=== PATIENT | female | born 1990 | race Caucasian/White ===

== ENCOUNTER 2021-03-13 11:47 | Inpatient (IN) ==
[2021-03-13 11:52] VITALS: BMI 38.7
[2021-03-13 12:35] LABS: BILIRUBIN,URINE NEGATIVE (NEGATIVE); BLOOD/HEMOGLOBIN,URINE 5+ (NEGATIVE); GLUCOSE, URINE NEGATIVE (NEGATIVE); KETONES,URINE 1+ (NEGATIVE); LEUKOCYTE ESTERASE ,URINE 1+ (NEGATIVE); NITRITES,URINE NEGATIVE (NEGATIVE); PH,URINE 6.5 (5.0 - 8.0); PROTEIN,URINE 3+ (NEGATIVE); UROBILINOGEN,URINE 1+ (NORMAL)
[2021-03-13 12:46] LABS: APPEARANCE,URINE HAZY (CLEAR); COLOR,URINE YELLOW (YELLOW)
[2021-03-13 12:47] LABS: BACTERIA,URINE TRACE /HPF (NEGATIVE); MUCUS,URINE FEW /HPF (NEGATIVE); RBC,URINE TNTC /HPF (0-3); SQUAMOUS EPITHELIAL CELL,UR NUMEROUS /HPF (NEGATIVE)
[2021-03-13 13:10] LABS: BASOPHILS % (AUTO) 0.4 % (0.2-1.0); EOSINOPHILS # (AUTO) 0.1 x10^3/uL (0.0-0.2); EOSINOPHILS % (AUTO) 0.8 % (0.9-2.9); HEMATOCRIT 36.8 % (36.0-47.0); HEMOGLOBIN 12.3 g/dL (12.0-16.0); LYMPHOCYTES # (AUTO) 1.8 X10^3/uL (1.3-2.9); LYMPHOCYTES % (AUTO) 15.5 % (21.0-51.0); MEAN CORPUSCULAR HEMOGLOBIN 28.2 pg (27.0-34.0); MEAN CORPUSCULAR HGB CONC 33.5 g/dL (33.0-35.0); MEAN CORPUSCULAR VOLUME 84.1 fL (80.0-100.0); MEAN PLATELET VOLUME 8.1 fL (7.4-11.0); MONOCYTES # (AUTO) 0.7 x10^3/uL (0.3-0.8); NEUTROPHILS % (AUTO) 77.3 % (42.0-75.0); PLATELET COUNT 321 X10^3/uL (150.0-450.0); RED BLOOD COUNT 4.38 X10^6/uL (3.5-5.4); RED CELL DISTRIBUTION WIDTH 15.9 % (11.6-16.5); WHITE BLOOD COUNT 11.7 X10^3/uL (3.6-10.0)
[2021-03-13 13:21] LABS: BLOOD UREA NITROGEN 7 mg/dL (7-18); CALCIUM 8.6 mg/dL (8.5-10.1); CARBON DIOXIDE 23.2 mmol/L (21-32); CHLORIDE 104 mmol/L (98-107); CREATININE 0.69 mg/dL (0.55-1.02); SODIUM 138 mmol/L (136-145); eGFR NON BLACK RACES > 60 (>60)
[2021-03-13] MEDS ORDERED: PITOCIN ONE ×2 (13:22→21:21)
[2021-03-13] MEDS ORDERED: D5 1/2 NS 1,000 ML 1,000 ML IV ONE (13:22)
[2021-03-13] MEDS ORDERED: BETADINE SOLN ONE (13:22)
[2021-03-13] MEDS ORDERED: D5 1/2 NS 1,000 mL + PITOCIN 20 UNITS/L IV 20 UNITS/1,000 ML BAG IV ONE (13:23)
[2021-03-13] MEDS ORDERED: DEXTROSE IV ONE (13:23)
[2021-03-13] MEDS ORDERED: OXYTOCIN IV ONE (13:23)
[2021-03-13] MEDS ORDERED: LACTATED RINGERS IV ONE (13:23)
[2021-03-13] MEDS ORDERED: AMPICILLIN VIAL 2 GRAM ONE (13:47)
[2021-03-13] MEDS ORDERED: NS 100 ML IV 100 ML ONE ×3 (13:48→20:41)
--- NOTE | 2021-03-13 13:54 | US ---
OB GREATER THAN 14 WEEKS LIMITHISTORY: 39 AND HALF WEEKS OB WITH VAG BLEEDING, CHECK PLACENTAComparison:NoneTechnique: Multiple grayscale and color flow Doppler images of the pelvis were obtained with focused evaluation of the fetus.Findings:A viable single intrauterine is identified with heart tones of 142 beats per minute. Acephalic presentation is observed with a anterior placenta.BPD 9.6 39 weeks 1 dayHC 33.8 38 weeks 5 daysIMPRESSION:No visible placental abnormalities.Electronically signed by: JONATHAN CASTILLO (Mar 13, 2021 13:51:33)
[2021-03-13] MEDS ORDERED: D5 LR + PITOCIN 10 UNITS/L 10 UNITS/1,000 ML BAG IV ONE (13:57)
--- NOTE | 2021-03-13 14:00 | DR.OB ---
OB Quick Note - Assessment/Plan Assessment/Plan: L&D 03/13/21 at 1:40pm S-No complaint except CTX. O-Afebrile,VSS KHR=351 with good LTV, +accel, no decel. CTX=q 1 1/2 to 3 min., mild to mod. by palpation CVX=5cm/75%/-1/VTX AROM with clear fluid. IUPC and FSE placed. A-IUP at 39 1/7 weeks in active labor A1DM CHTN +GBS P-Begin pitocin augmentation IV ABX in labor for +GBS F/U labs and preeclamptic labs Anticipate
[2021-03-13] MEDS ORDERED: PITOCIN IVP ONE (14:25)
[2021-03-13] MEDS ORDERED: REGLAN INJ 10 MG VIAL IVP PRN ×3 (14:25→23:27)
[2021-03-13] MEDS ORDERED: PHENERGAN INJ 25 MG IM PRN ×2 (14:25→23:06)
[2021-03-13] MEDS ORDERED: AMPICILLIN VIAL 2 GRAM 2 G in NS 100 ML IV + SPIKE MINIBAG* 100 ML IV SCH (15:00)
[2021-03-13] MEDS ORDERED: D5 LR + PITOCIN 10 UNITS/L 10 UNITS/1,000 ML BAG IV PRN (15:00)
[2021-03-13] MEDS ORDERED: D5 1/2 NS 1,000 ML 1,000 ML IV SCH (15:00)
[2021-03-13 15:12] LABS: URIC ACID 4.9 mg/dL (2.6-6.0)
[2021-03-13] MEDS ORDERED: LR 1,000 ML IV 1,000 ML IV ONE ×4 (15:28→20:42)
[2021-03-13] MEDS ORDERED: FENTANYL VIAL INJ 100 mcg ONE ×2 (15:28→15:29)
[2021-03-13] MEDS ORDERED: NAROPIN EPIDURAL 0.2% 100 ML ONE (15:29)
--- NOTE | 2021-03-13 16:32 | DR.OB ---
OB Quick Note - Assessment/Plan Assessment/Plan: L&D 03/13/21 at 4:25pm Pitocin=10mu/min. Ampicillin S-No complaint. s/p epidural. O-Afebrile,VSS KSG=096 with good LTV, +accel, no decel. CTX=q 1 1/2 to 2 min., about 35-55mmHg CVX=7cm/90%/-1 A-IUP at 39 1/7 weeks in active labor A1DM CHTN +GBS P-Cont. pitocin augmentation and ABX in labor Anticipate
[2021-03-13] MEDS ORDERED: AMPICILLIN VIAL 1 GRAM ONE (19:31)
--- NOTE | 2021-03-13 20:35 | DR.OB ---
OB Quick Note - Assessment/Plan Assessment/Plan: L&D 03/13/21 at 8:30pm Pitocin=18mu/min. Ampicillin S-No complaint. Pushing well with good effort. O-Afebrile,VSS RKY=[id number] with good LTV, +accel, occ. variables CTX=q 1 1/2 min., about 45-55mmHg CVX=complete, head not descending below 0 station despite pushing for 1 1/2 hours. Large caput forming. A-IUP 39 1/7 weeks with failure to descend Suspected macrosomia P-To C/S
[2021-03-13] MEDS ORDERED: ANCEF VIAL 1 GRAM ONE (20:40)
[2021-03-13] MEDS ORDERED: LIDOCAINE 2%-EPI 1:200,000 ONE (20:42)
[2021-03-13] MEDS ORDERED: DILAUDID INJ ONE (20:42)
[2021-03-13] MEDS ORDERED: DIPRIVAN VIAL ONE (21:21)
[2021-03-13] MEDS ORDERED: ZOFRAN INJ 4 MG VIAL ONE (21:21)
[2021-03-13] MEDS ORDERED: NEO-SYNEPHRINE INJ ONE (21:21)
[2021-03-13] MEDS ORDERED: KETALAR ONE (21:21)
[2021-03-13] MEDS ORDERED: VERSED ONE (21:21)
[2021-03-13] MEDS ORDERED: OFIRMEV IV 1000 MG VIAL 1,000 MG/100 ML VIAL IV ONE (22:27)
[2021-03-13] MEDS ORDERED: ZOFRAN INJ 4 MG VIAL IVP PRN ×2 (23:06→23:27)
[2021-03-13] MEDS ORDERED: BENADRYL INJ 50 MG VIAL IVP PRN ×2 (23:06→23:27)
[2021-03-13] MEDS ORDERED: BARHEMSYS INJ IVP PRN (23:06)
[2021-03-13] MEDS ORDERED: MYLICON TAB 80 MG CHEW PO PRN (23:27)
[2021-03-13] MEDS ORDERED: NARCAN INJ IVP PRN (23:27)
[2021-03-13] MEDS ORDERED: ADACEL or BOOSTRIX TDaP VACCINE IM ONE (23:27)
[2021-03-13] MEDS ORDERED: PERCOCET TAB 5/325 MG PO PRN (23:27)
[2021-03-13] MEDS ORDERED: TORADOL 30 MG VIAL IVP PRN (23:27)
[2021-03-13] MEDS ORDERED: D5 1/2 NS 1,000 ML 1,000 ML with PITOCIN 20 UNITS IV SCH ×2 (23:45)
[2021-03-14 05:30] LABS: HEMATOCRIT 28.2 % (36.0-47.0)
[2021-03-14 05:37] LABS: HEMOGLOBIN 9.4 g/dL (12.0-16.0)
[2021-03-14] MEDS ORDERED: PERCOCET TAB 5/325 MG PO PRN (07:02)
[2021-03-14] MEDS: PROTONIX TAB 40 MG PO SCH (09:25)
[2021-03-14] MEDS: PRENATAL PLUS PO SCH (09:25)
[2021-03-14] MEDS: COLACE CAP 100 MG PO SCH ×2 (09:25→20:00)
[2021-03-14] MEDS: MOTRIN TAB 800 MG PO PRN ×2 (09:25→17:15)
[2021-03-14] MEDS ORDERED: ADACEL or BOOSTRIX TDaP VACCINE IM ONE (09:44)
[2021-03-14] MEDS: BACTROBAN TOPICAL OINT TOP SCH ×2 (14:24→22:00)
[2021-03-15] MEDS: BACTROBAN TOPICAL OINT TOP SCH (05:51)
[2021-03-15 07:51] VITALS: BP 142/70
[2021-03-15] MEDS: COLACE CAP 100 MG PO SCH (09:11)
[2021-03-15] MEDS: PRENATAL PLUS PO SCH (09:12)
[2021-03-15] MEDS: PROTONIX TAB 40 MG PO SCH (09:12)
[2021-03-15] MEDS: MOTRIN TAB 800 MG PO PRN (09:13)
== END 2021-03-15 12:10 | disposition home or self-care (01) | DRG 787 ==
LOC: ER 11:47 → LD 13:54 → MED/SURG 23:19
PROVIDERS: ADMIT Specialist; ATTEND Specialist
DX: O99.613 Diseases of the digestive system complicating pregnancy, third trimester; O98.82 Other maternal infectious and parasitic diseases complicating childbirth; O62.0 Primary inadequate contractions; O24.410 Gestational diabetes mellitus in pregnancy, diet controlled; Z3A.39 39 weeks gestation of pregnancy; Z37.0 Single live birth; O10.013 Pre-existing essential hypertension complicating pregnancy, third trimester; O66.2 Obstructed labor due to unusually large fetus